=== PATIENT | male | born 1975 | race Caucasian/White ===

== ENCOUNTER 2020-08-29 12:14 | Emergency (ER) | payer BC ==
--- NOTE | 2020-08-29 12:54 | EDM.PDOC ---
ED HPI GENERAL MEDICAL PROBLEM - General Chief Complaint: CPR in Progress Stated Complaint: TRAUMA CODE Time Seen by Provider: 08/29/20 12:41 Source of Information: Reports: EMS History Limitations: Reports: Other (Cardiac arrest) - History of Present Illness INITIAL COMMENTS - FREE TEXT/NARRATIVE: This is a 45-year-old male with unknown past medical history presenting in cardiac arrest with traumatic injuries. He arrives to the hospital by ambulance. He was reportedly at his worksite when a coworker found him slumped over in a doorway with a wound to the left lower quadrant of the abdomen with eviscerated bowel. It is unclear what caused this traumatic injury. Patient was only unattended for a few minutes before this occurred. When paramedics arrived, the patient was unresponsive but did have a pulse and a blood pressure. He was noted to have an evisceration injury to the left lower quadrant of the abdomen. Paramedics stated that his clothing was partially cut through but not through all layers. In route to the hospital, the patient degenerated into cardiac arrest. Paramedics started CPR, assisted ventilations with BVM. They were not able to establish IV access and the patient was not intubated. He arrives to the emergency department in cardiac arrest, with chest compressions and BVM ventilations ongoing by EMS personnel. ROS: Unable to obtain due to cardiac arrest Past medical history: Unknown Surgical history: Unknown Social history: Unknown Family history: Unknown PHYSICAL EXAM Vital signs reviewed. Nursing notes reviewed. Constitutional: Unconscious, unresponsive Head: Normocephalic, atraumatic. Eyes: No scleral icterus. Ears, Nose, Throat: Atraumatic externally. Cardiovascular: Pulseless, chest compressions ongoing. Pulmonary: Apneic, BVM ventilations ongoing. Abdomen/GI: There appears to be a wound to the left lower quadrant of the abdomen that with eviscerated bowel. Musculoskeletal: No deformities. Integumentary: Pale, cool. Neurologic: Unresponsive. Psychiatric: Unable to assess. - Related Data Allergies Allergy/AdvReac Type Severity Reaction Status Date / Time No Known Allergies Allergy Verified 08/29/20 13:12 Home Meds: Home Meds . [No Known Home Meds] 07/23/15 [History] Past Medical History - Past Health History Medical/Surgical History: Denies Medical/Surgical History Review of Systems - Review of Systems Review Of Systems: See Below ED EXAM, GENERAL - Physical Exam Exam: See Below ED TRAUMA PROCEDURES - Chest Tube Insertion Chest Tube Location: Right Site: Mid Axillary Line Tube Size: Other (Finger thoracostomy - no tube.) Carcamo of Air [place]: No Number of Attempts: 2 Tube Connected to Suction: No ED ULTRASOUND - FAST Exam Indication: penetrating trauma Exam type: FAST exam Findings: no free fluid noted Images archived: No Fast US Text: Cardiac standstill - no cardiac motion. No pericardial effusion, no intraabdominal free fluid. Course - Vital Signs Text/Narrative:: Based on the EMS report prior to arrival, a trauma code was declared prior to the ambulance arriving in our emergency department. The general surgeon was paged immediately as well. Upon arrival to the emergency department, the patient is in cardiac arrest, EMS is performing chest compressions and BVM ventilations. They were immediately transferred to the [facility]. Chest compressions were continued. I immediately performed a FAST exam which showed absent cardiac activity and no gross intra-abdominal free fluid. No pericardial effusion/tamponade. The paramedics established IO access, one catheter in each tibia. ED nurse established a 16-gauge IV in one of the upper extremities. NELY Arzate was present and performed endotracheal intubation, please refer to his procedure documentation about this. Intubation was uncomplicated and the NELY advised me that he performed this successfully on the first attempt with ET tube placement confirmed by waveform ETCO2 capnography. 1 mg of epinephrine was administered along with 1 g of tranexamic acid. The patient was also given 1 unit of uncrossed matched packed red blood cells. ECG shows a slow PEA with a ventricular rate below 40. The general surgeon Dr. Vicente responded to the emergency department and assisted with management of the case. I performed bilateral finger thoracostomies to evaluate for pneumothorax or hemothorax, I did not note any carcamo of air or any hemorrhage. The lungs were palpated digitally during this procedure. Dr. Vicente placed a right-sided chest tube. There was no drainage of blood. On serial ultrasound assessments, the patient continues to have exhibit absent cardiac activity. There is no evidence of pericardial effusion or cardiac tamponade to necessitate a resuscitative thoracotomy. The patient exhibited no clinical response or return of spontaneous circulation after CPR, endotracheal intubation, blood products, and finger thoracostomies. I did discuss with Dr. Vicente that we could not readily identify any further reversible causes. He agreed. At this point the patient has received CPR for at least 15 minutes in between prehospital CPR and in the emergency department CPR. Resuscitation was terminated and time of declared per the nursing record. - Orders/Labs/Meds Labs: Laboratory Tests 08/29/20 Range/Units 11:50 Blood Type O POSITIVE Antibody Screen Not Reportable Crossmatch See Detail Meds: Medications Discontinued Medications Generic Name Dose Route Start Last Admin Trade Name Freq PRN Reason Stop Dose Admin Epinephrine HCl 1 mg 08/29/20 21:07 Epinephrine 1:10,000 IVPUSH 08/29/20 21:08 ONETIME ONE Epinephrine HCl 1 mg 08/29/20 21:08 Epinephrine 1:10,000 IVPUSH 08/29/20 21:09 ONETIME ONE Tranexamic Acid 1,000 mg/ 110 mls @ 600 mls/hr 08/29/20 21:11 Sodium Chloride IV 08/29/20 21:21 ONETIME ONE Departure - Departure Time of Disposition: 12:41 Disposition: 20 Preliminary Cause of *Q: Other_Special Instruction (Traumatic injuries) Condition: Critical Clinical Impression: Traumatic cardiac arrest Penetrating wound of abdomen Qualifiers: Encounter type: initial encounter Qualified Code(s): S31.609A - Unspecified open wound of abdominal wall, unspecified quadrant with penetration into per itoneal cavity, initial encounter - Discharge Information Referrals: PCP,None [Primary Care Provider] - Forms: ED Department Discharge Critical Care Note - Critical Care Note Total Time (mins): 30 Comments: Critical care time is exclusive of billable procedures and the time to perform these procedures. Critical care time was used to prevent vital system organ failure and deterioration. Critical care time includes bedside management and high-complexity decision making requiring my highest level of mental preparedness and attention. This includes reviewing the patient's chart and prior medical records, ordering and reviewing interpreting laboratory studies and imaging results, interpretation of vital signs and EKG, pulse oximetry, and discussion with the admitting team or accepting facility, discussions with EMS and nursing staff, and discussions with any family members if available. Prehospital care coordination with nursing staff and on-call general surgeon (I requested his presence prior to patient arrival given prehospital report of traumatic cardiac arrest). Traumatic cardiac arrest requiring blood transfusion, chest compressions, thoracostomies, serial ultrasound monitoring, endotracheal intubation, ant TXA. Postmortem communications and coordination with family members, law enforcement, and hospital pathologist who responded to the emergency department to assist with the case, along with documentation.
[2020-08-29] MEDS ORDERED: EPINEPHrine 1:10,000 1 MG/10 ML Syringe IVPUSH ONE ×2 (21:07→21:08)
[2020-08-29] MEDS ORDERED: Tranexamic Acid 1,000 MG in Sodium Chloride 0.9% 100 ML IV ONE (21:11)
--- NOTE | 2020-08-30 06:50 | ER ---
HISTORY OF PRESENT ILLNESS: The patient is a 45-year-old gentleman, who had a trauma code activated. Per the ER physician and EMS, the patient was found slumped over in apparently a doorway at work and was unresponsive. Apparently, he was at his worksite and found by a co- worker. He was found to have a left lower abdominal wound with evisceration of small bowel. The mechanism of the injury is unknown. Paramedics were called. When paramedics arrived, the patient again was unresponsive, but he did have a pulse and blood pressures. Per EMS, on their way to the hospital, they lost pulse and blood pressure, and CPR was initiated. When he arrived in the ER, he was in cardiac arrest and receiving chest compressions. He was intubated, and intraosseous IV access was achieved. The ER physician said that he did do an ultrasound of the heart when the patient arrived that showed no cardiac activity. He also did an ultrasound of the abdomen, did not see any fluid. When I arrived, the code had been going on from what I was told for 8 to 10 minutes. At this time, he has been in cardiac arrest I was told for about a total of 15 to 20 minutes. The ER physician, Dr. Hernandez Helm, was placing thoracotomies just to ensure that there was not any undetected pneumothorax causing his cardiac arrest. He opened both the right and the left side. He said there was no air or blood. Since he did have the thoracotomy open, I did place a chest tube on the right using his incision. I did do a finger sweep. The lung was expanded, there was no drainage blood or air at this time from the chest tube. The ER physician did do another ultrasound of the heart, and there was no cardiac activity seen on the ultrasound. At this time, the code was called. PAST MEDICAL PROBLEMS: Unknown. CURRENT HOME MEDICATIONS: Unknown. REVIEW OF SYSTEMS: Unable to obtain. FAMILY HISTORY: Unable to obtain. SOCIAL HISTORY: Unable to obtain. PHYSICAL EXAMINATION: As per HPI, the patient did come in coding and pulseless. The only injury on examination appeared to be an opening in his abdominal wall. This was lower and just left to midline. There were multiple loops of small bowel. The patient did have intraosseous access at each of the tibias in his lower extremities. The patient was rolled, and there did not appear to be any injury to his back. ASSESSMENT AND PLAN: This is a 45-year-old gentleman, who came in as a major trauma with an unknown injury to his lower abdomen. Having a cardiac arrest en route to the hospital. The patient was intubated; however, we were unable to get cardiac activity back. This was seen on ultrasound with no cardiac activity and also noted by Dr. Hernandez Helm. I agreed with the emergency room physician on the cessation of resuscitation. JOHNY / LEELA /[id number] MTDD
--- NOTE | 2020-09-12 12:16 | PCM.PRNOTE ---
- Free Text/Narrative Note: Anes Note I was called to ER to perform intubation on this patient. An 8.0 ET tube was passed with ease using video laryngoscope. Tube secured at 21 cm. Time with patient [id number] Huey Bravo CRNA
== END 2020-08-29 15:40 | disposition expired ==
LOC: MW.ED 12:14
DX: I46.9 Cardiac arrest, cause unspecified (principal); S39.91XA Unspecified injury of abdomen, initial encounter; X58.XXXA Exposure to other specified factors, initial encounter; Y99.0 Civilian activity done for income or pay
CPT/HCPCS: 31500; 32551; 36415; 36430; 36680; 86850; 86900; 86901; 86920; 86921; 86922; 92950; 99285; J0171; P9016; 99291